=== PATIENT | male | born 1965 | race Caucasian/White ===

== ENCOUNTER 2018-09-09 04:46 | Emergency (ER) | payer SELFPAY ==
--- NOTE | 2018-09-09 05:11 | PDOC ---
History of Present Illness - General Chief Complaint: Chest Pain Stated Complaint: L ARM PAIN Time Seen by Provider: 09/09/18 05:01 History Source: Patient Exam Limitations: No Limitations - History of Present Illness Initial Comments: Pt is a 53 yo M, with PMH of DM (well-controlled with sliding scale insulin), who is presenting with complaints of L-sided chest pain, with numbness/tingling in his L arm. Pt describes the pain as "sharp and shooting" in his L chest, and is associated with nausea and some diaphoresis. The pain lasts only a few seconds, but he also has had baseline chest pressure for the past 3 weeks. Tonight, the shooting pains woke him from sleep, and were more sharp today than usual. Pt denies any fevers/chills, headache, vision changes, syncope, palpitations, SOB, vomiting, abdominal pain, urinary symptoms, diarrhea/ constipation, or leg swelling. Pt took 325 mg PO aspirin around midnight at home. Pt also states he stepped on a piece of glass a few weeks ago. He attempted to remove the glass, but still feels as if a fragment is present. Social: Pt denies any cigarette, alcohol, or drug use. Pt denies any recent travel or sick contacts. Surgical: no relevant history Family: no relevant history 09/09/18 06:42 09/13/18 14:47 Past History - Travel Traveled outside of the country in the last 30 days: No Close contact w/someone who was outside of country & ill: No - Past Medical History Allergies/Adverse Reactions: Allergies Allergy/AdvReac Type Severity Reaction Status Date / Time No Known Allergies Allergy Verified 09/09/18 05:03 Home Medications: Ambulatory Orders Insulin Glargine,Hum.rec.anlog [Lantus] 12 unit SQ DAILY 09/09/18 metFORMIN HCL [Metformin HCl] 500 mg PO BID 09/09/18 Cardiac Disorders: No Hx Myocardial Infarction: No Diabetes: Yes HTN: No Hypercholesterolemia: No Thyroid Disease: No - Surgical History Abdominal Surgery: No Cardiac Surgery: No GI Surgery: No - Suicide/Smoking/Psychosocial Hx Smoking History: Never smoked Review of Systems - Review of Systems Able to Perform ROS?: Yes Is the patient limited Liberian proficient: No Constitutional: Yes: Diaphoresis, Weight Stable. No: Chills, Fever, Loss of Appetite, Malaise HEENTM: No: Recent change in vision, Double Vision, Nose Congestion, Throat Swelling, Difficulty Swallowing Respiratory: No: Cough, Orthopnea, Shortness of Breath Cardiac (ROS): Yes: See HPI, Chest Pain. No: Edema, Irregular Heart Rate, Lightheadedness, Palpitations, Syncope, Chest Tightness ABD/GI: Yes: Nausea. No: Constipated, Diarrhea, Poor Appetite, Poor Fluid Intake, Vomiting : No: Burning, Dysuria, Pain, Urgency Musculoskeletal: No: Back Pain, Joint Pain Integumentary: No: Rash Neurological: Yes: See HPI, Tingling. No: Headache, Numbness, Paresthesia, Weakness, Unsteady Gait, Dizziness Psychiatric: No: Sleep Pattern Change, Change in Appetite Endocrine: No: Increased Urine, Change in Weight Hematologic/Lymphatic: No: Anemia, Blood Clots, Easy Bleeding, Easy Bruising All Other Systems: Reviewed and Negative *Physical Exam - Vital Signs Last Vital Signs Temp Pulse Resp BP Pulse Ox 98.6 F 102 H 18 132/77 100 09/09/18 04:50 09/09/18 04:50 09/09/18 04:50 09/09/18 04:50 09/09/18 04:50 - Physical Exam General Appearance: Yes: Nourished, Appropriately Dressed, Obese. No: Apparent Distress HEENT: positive: EOMI, [place], Normal ENT Inspection, Normal Voice, Pharynx Normal , Hearing Grossly Normal. negative: Scleral Icterus (R), Scleral Icterus (L), Pharyngeal Erythema, Tonsillar Exudate, Tonsillar Erythema, Nasal Congestion, Rhinorrhea Neck: positive: Trachea midline, Normal Thyroid, Supple. negative: Tender, Rigid, Lymphadenopathy (R), Lymphadenopathy (L) Respiratory/Chest: positive: Lungs Clear, Normal Breath Sounds. negative: Chest Tender, Respiratory Distress, Accessory Muscle Use, Crackles, Wheezing Cardiovascular: positive: Regular Rhythm, Regular Rate, S1, S2. negative: Edema , JVD, Murmur Vascular Pulses: Carotid (R): 4+, Carotid (L): 4+ Gastrointestinal/Abdominal: positive: Normal Bowel Sounds, Soft, Protuberent. negative: Tender, Flat, Organomegaly, Pulsatile Mass, Guarding, Rebound Rectal Exam: positive: deferred Lymphatic: negative: Adenopathy, Tenderness Musculoskeletal: positive: Normal Inspection. negative: CVA Tenderness, Decreased Range of Motion Extremity: positive: Normal Capillary Refill, Normal Inspection, Normal Range of Motion, Pelvis Stable. negative: Tender, Pedal Edema Integumentary: positive: Normal Color, Dry, Warm, Diaphoresis. negative: Jaundice, Clammy, Rash Neurologic: positive: service delivery management consultant II-XII NML intact, Fully Oriented, Alert, Normal Mood/ Affect, Normal Response, Motor Strength 5/5. negative: EOM Palsy, Facial Droop , Numbness, Sensory Deficit Moderate Sedation - Procedure Monitoring Vital Signs: Procedure Monitoring Vital Signs Temperature 98.6 F 09/09/18 04:50 Pulse Rate 102 H 09/09/18 04:50 Respiratory Rate 18 09/09/18 04:50 Blood Pressure 132/77 09/09/18 04:50 O2 Sat by Pulse Oximetry (%) 100 09/09/18 04:50 Heart Score/ECG Review - History History: Slightly suspicious - Electrocardiogram EKG: Normal - Age Age: 45-65 - Risk Factors Risk Factors Heart Score: Yes Hx Diabetes Based on the list above the patient has:: 1-2 risk factors - Troponin Troponin: </= normal limit - Score Heart Score - Total: 2 ED Treatment Course - LABORATORY CBC & Chemistry Diagram: 09/09/18 05:06 09/09/18 05:06 Medical Decision Making - Medical Decision Making Pt was seen at bedside, also will be seen by attending Dr. Palmer. Pt presenting with complaints of L-sided chest pain, with numbness/tingling in his R arm. Pt describes the pain as "sharp and shooting" in his L chest, and is associated with nausea and some diaphoresis. The pain lasts only a few seconds, but he also has had baseline chest pressure for the past 3 weeks. Tonight, the shooting pains woke him from sleep, and were more sharp today than usual. Pt denies any fevers/chills, headache, vision changes, syncope, palpitations, SOB, vomiting, abdominal pain, urinary symptoms, diarrhea/constipation, or leg swelling. Pt took 325 mg PO aspirin around midnight at home. Pt also states he stepped on a piece of glass a few weeks ago. He attempted to remove the glass, but still feels as if a fragment is present. PE showed clear heart and lung sounds, no reproducible chest wall tenderness. Tenderness not elicited with L arm movement. Sensation over L arm decreased in all dermatomes. No decreased muscular strength. service delivery management consultant intact. No abdominal tenderness. Well-healed callus over R midfoot, no erythema/warmth/streaking. Considering ACS vs angina vs MSK pain vs cervical stenosis. Minimal concern for PE at this time, as pt has no PE risk factors (no prior clots, no travel, no bedrest). No family history of ACS, pt not a smoker. Ordered work-up including CBC, CMP, EKG, troponin x2, lipase, chest x-ray and x- ray of R foot. Pt denying pain control measures at this time. Will continue to reassess pt and monitor for symptomatic improvement. 09/09/18 05:43 ECG: NSR, intervals WNL. No TWIs or ST segment elevations or depressions. CBC WNL. 09/09/18 06:12 Chest x-ray clear, no focal tenderness. X-ray R foot showed only superficial swelling, no foreign body present. Callus appeared well-healed and non-infected. Advised pt to follow that issue with PCP and wound care. Pt signed out to next resident team. Explained presentation, ED course, any pending results, and needed interventions to resident Dr. Palomares. 09/09/18 06:34 09/13/18 14:50 *DC/Admit/Observation/Transfer Diagnosis at time of Disposition: Atypical chest pain - Referrals Referrals: Gokul Clay MD [Staff Physician] - Opal Yuan MD [Primary Care Provider] - - Patient Instructions Printed Discharge Instructions: DI for Atypical Chest Pain Additional Instructions: You were seen today for the chest pain you have been experiencing over the past several weeks. Your EKG, xray, and blood work were all normal today. The pain is unlikely to be related to your heart. However, I have entered a referral for you to see a washing machine striper for further evaluation. You will need to call the clinic to make an appointment. The number is included in this packet. You should also follow up with your primary care doctor within the next 3-4 days to make sure you are healing. You can take over the counter Tylenol as needed for pain. Take as directed on the package insert. Do not exceed the recommended dosage. Go to the nearest emergency department if your condition worsens or you feel like you need additional emergency evaluation. Print Language: SOUTH KOREAN - Post Discharge Activity
[2018-09-09 05:19] LABS: BASO % 0.4 % (0-2.0); EOS % 1.4 % (0-4.5); HEMATOCRIT 44.3 % (35.4-49); LYMPH % 20.5 % (8-40); MCH 29.8 pg (25.7-33.7); MCHC 33.8 g/dl (32.0-35.9); MEAN CELL VOLUME 88.3 fl (80-96); MEAN PLT VOLUME 7.3 fl (7.5-11.1); MONO % 6.5 % (3.8-10.2); NEUT % 71.2 % (42.8-82.8); PLATELET COUNT 282 K/MM3 (134-434); RBC 5.02 M/mm3 (4.00-5.60); RDW 13.4 % (11.9-15.9); WHITE BLOOD COUNT 7.6 K/mm3 (4.0-10.0)
[2018-09-09 05:27] VITALS: BP 132/77; TEMP 98.6; BMI 34.2
--- NOTE | 2018-09-09 06:05 | PDOC ---
Attending Attestation - Resident Resident Name: [place] - ED Attending Attestation I have performed the following: I have examined & evaluated the patient, The case was reviewed & discussed with the resident, I agree w/resident's findings & plan, Exceptions are as noted - HPI HPI: 09/09/18 05:59 53 years old past medical history significant for diabetes presents emergency Department with 3 month history of intermittent sharp substernal chest discomfort with radiation to his left arm. Last night awoke him from sleep states he was somewhat worse than these previous events. Several years ago patient had an extensive workup for this Symptoms are mild to moderate intermittent lasting a few seconds at a time not associated with exertion ROS: A complete review of 10 out of 10 review of systems is taken and is negative apart from what is previously mentioned below and in the HPI. - Physicial Exam PE: 09/09/18 06:05 Vitals: Triage Vital signs reviewed General Appearance: no acute distress, well nourished well developed, Head: Atraumatic, Neck: Supple;No Nucal rigidity Chest Wall: Nontender Cardiac: Regular rate and rhythym, no murmurs, no rubs, no gallops, Lungs: Clear to auscultation bilateral, good air movement bilaterally, Abdomen: Soft, non distended, normal bowel sounds, non tender to palpation Extremities: Full range of motion to all extremities, no cyanosis, clubbing, or edema Skin: Warm and dry, no rashes or lesions, no rash, no petechiae Psych: normal mood, normal affect - Medical Decision Making 09/09/18 06:06 53 years old with atypical chest discomfort. Performed EKG troponin [address] Cornejo to follow up labs, reasses, and dispo Heart Score/ECG Review - History History: Slightly suspicious - Electrocardiogram EKG: Normal - Age Age: 45-65 - Risk Factors Risk Factors Heart Score: Yes Hx Diabetes Based on the list above the patient has:: 1-2 risk factors - ECG Impressions Comment:: 09/09/18 06:06 EKG performed at 528 demonstrates normal sinus rhythm [address] elevations. No T-wave inversions. Incomplete right bundle-branch block Interpreted by me.
[2018-09-09 06:40] VITALS: PULSE 89
--- NOTE | 2018-09-09 07:00 | PDOC ---
*Physical Exam - Vital Signs Last Vital Signs Temp Pulse Resp BP Pulse Ox 98.6 F 89 18 132/77 100 09/09/18 04:50 09/09/18 06:39 09/09/18 04:50 09/09/18 04:50 09/09/18 04:50 - Physical Exam General Appearance: Yes: Appropriately Dressed. No: Apparent Distress HEENT: positive: Normal Voice Neck: positive: Supple Respiratory/Chest: negative: Respiratory Distress Integumentary: positive: Normal Color, Dry, Warm ED Treatment Course - LABORATORY CBC & Chemistry Diagram: 09/09/18 05:06 09/09/18 05:06 - ADDITIONAL ORDERS Additional order review: Laboratory Results 09/09/18 05:06 Sodium Cancelled Potassium Cancelled Chloride Cancelled Carbon Dioxide Cancelled Anion Gap Cancelled BUN Cancelled Creatinine Cancelled Creat Clearance w eGFR Cancelled Random Glucose Cancelled Calcium Cancelled Total Bilirubin Cancelled AST Cancelled ALT Cancelled Alkaline Phosphatase Cancelled Total Protein Cancelled Albumin Cancelled 09/09/18 05:06 RBC 5.02 MCV 88.3 MCHC 33.8 RDW 13.4 MPV 7.3 L Neutrophils % 71.2 Lymphocytes % 20.5 Monocytes % 6.5 Eosinophils % 1.4 Basophils % 0.4 Medical Decision Making - Medical Decision Making 09/09/18 06:55 Received sign out from resident Dr. Wooten. In short, pt is a 53 y/o male complaining of left sided sharp and brief (<10 seconds) chest pain x3 weeks. Worse when waking from sleep today. Also endorsing left arm numbness and sensation of broken glass in foot. Plain film of the extremity was unremarkable for foreign body. Initial EKG was unremarkable for ectopy. Initial troponin is pending. Plan for repeat 3 hour troponin at 08:00. Initial troponin negative. Delay in resulting secondary to lab error. Repeat EKG: Sinus rhythm with a ventricular rate of 81 bpm. Normal axis. Normal intervals. No ST segment elevation or depression. No hyperacute T waves. No pathologic Q waves. Unchanged compared to initial EKG. Continue to have low suspicion for ACS. Awaiting second troponin. Second troponin not elevated. Pt reasessed and found resting comfortably. Discussed imaging and laboratory results with pt and . Answered all questions. Provided return precautions. Pt expressed verbal understanding and agreement with plan to discharge home with outpatient follow up. Provided cardiology follow up. Pt's insisted on signing discharge paperwork stating she is the pt's healthcare power of chief of surgery. *DC/Admit/Observation/Transfer Diagnosis at time of Disposition: Atypical chest pain - Discharge Dispostion Disposition: HOME Condition at time of disposition: Good Decision to Admit order: No - Referrals Referrals: Opal Yuan MD [Primary Care Provider] - Gokul Clay MD [Staff Physician] - - Patient Instructions Printed Discharge Instructions: DI for Atypical Chest Pain Additional Instructions: You were seen today for the chest pain you have been experiencing over the past several weeks. Your EKG, xray, and blood work were all normal today. The pain is unlikely to be related to your heart. However, I have entered a referral for you to see a studio musician for further evaluation. You will need to call the clinic to make an appointment. The number is included in this packet. You should also follow up with your primary care doctor within the next 3-4 days to make sure you are healing. You can take over the counter Tylenol as needed for pain. Take as directed on the package insert. Do not exceed the recommended dosage. Go to the nearest emergency department if your condition worsens or you feel like you need additional emergency evaluation. Print Language: KINYARWANDA - Post Discharge Activity
[2018-09-09 07:27] LABS: BLOOD UREA NITROGEN 15 mg/dL (7-18); CREATININE 1.1 mg/dL (0.55-1.3); GLUCOSE,RANDOM 134 mg/dL (74-106); POTASSIUM 4.3 mmol/L (3.5-5.1); SODIUM 141 mmol/L (136-145)
[2018-09-09 07:28] LABS: ALBUMIN 3.5 g/dl (3.4-5.0); ALK PHOS 114 U/L (45-117); ANION GAP 8 MMOL/L (8-16); CHLORIDE 108 mmol/L (98-107); CO2 25 mmol/L (21-32); SGOT/AST 18 U/L (15-37); SGPT/ALT 26 U/L (13-61); TOT PROT 6.8 g/dl (6.4-8.2)
[2018-09-09 07:35] LABS: LIPASE 244 U/L (73-393)
--- NOTE | 2018-09-10 19:04 | EKG ---
Test Reason : Blood Pressure : / mmHG Vent. Rate : 081 BPM Atrial Rate : 081 BPM P-R Int : 170 ms QRS Dur : 104 ms QT Int : 360 ms P-R-T Axes : 036 013 031 degrees QTc Int : 418 ms NORMAL SINUS RHYTHM NORMAL ECG WHEN COMPARED WITH ECG OF 09-SEP-2018 05:28, NO SIGNIFICANT CHANGE WAS FOUND Confirmed by DANIEL PURCELL MD ([id number]) on 09/10/2018 7:03:58 PM Referred By: Confirmed By:DANIEL PURCELL MD
--- NOTE | 2018-09-10 19:04 | EKG ---
Test Reason : Blood Pressure : / mmHG Vent. Rate : 091 BPM Atrial Rate : 091 BPM P-R Int : 162 ms QRS Dur : 098 ms QT Int : 352 ms P-R-T Axes : 030 011 024 degrees QTc Int : 432 ms NORMAL SINUS RHYTHM NORMAL ECG NO PREVIOUS ECGS AVAILABLE Confirmed by DANIEL PURCELL MD ([id number]) on 09/10/2018 7:04:05 PM Referred By: Confirmed By:DANIEL PURCELL MD
== END 2018-09-09 10:00 ==
LOC: JER 04:46
DX: R07.89 Other chest pain (principal); E11.9 Type 2 diabetes mellitus without complications; Z79.4 Long term (current) use of insulin; Z79.84 Long term (current) use of oral hypoglycemic drugs
CPT/HCPCS: 36415; 71045-TC-FY; 73630-TC-RT-FY; 80053; 83690; 84484; 85025; 93005; 93010; 99283-25